=== PATIENT | female | born 1955 | race Caucasian/White ===

== ENCOUNTER 2021-07-15 10:22 | Emergency (ER) | payer MEDICARE, OTHER ==
[2021-07-15 12:02] LABS: HEMOGLOBIN 13.9 gm/dl (12.3-15.3); RED BLOOD COUNT 4.72 M/UL (4.00-5.10); WHITE BLOOD COUNT 11.3 K/UL (4.5-11.0)
[2021-07-15 13:13] LABS: BUN/CREATININE RATIO 12 (0-10)
[2021-07-15] MEDS ORDERED: BENZONATATE200 MG PO (13:54)
== END 2021-07-15 14:26 | disposition home or self-care (01) ==
LOC: ER1 10:22
PROVIDERS: Emergency Medicine
DX: R07.89 Other chest pain (principal); B34.9 Viral infection, unspecified; I10 Essential (primary) hypertension; Z90.49 Acquired absence of other specified parts of digestive tract; Z90.710 Acquired absence of both cervix and uterus
CPT/HCPCS: 71045; 80048; 82550; 82553; 84484; 85025; 93005; 96374; 99284; J2930

== ENCOUNTER 2021-10-14 09:30 | Emergency (ER) | payer MEDICARE, OTHER ==
[~2021-10-14 09:30] MED LIST: BENZONATATE200 MG PO
[2021-10-14 10:50] LABS: HEMOGLOBIN 14.1 gm/dl (12.3-15.3); RED BLOOD COUNT 4.85 M/UL (4.00-5.10); WHITE BLOOD COUNT 9.5 K/UL (4.5-11.0)
[2021-10-14 11:20] LABS: BUN/CREATININE RATIO 16 (0-10)
[2021-10-14] MEDS ORDERED: OMEPRAZOLE40 MG PO (12:23)
== END 2021-10-14 12:32 | disposition home or self-care (01) ==
LOC: ER1 09:30
PROVIDERS: Emergency Medicine
DX: R10.13 Epigastric pain (principal); E11.9 Type 2 diabetes mellitus without complications; I10 Essential (primary) hypertension
CPT/HCPCS: 71045; 80053; 81001; 82550; 82553; 83690; 84484; 85025; 93005; 96360; 99284